=== PATIENT | female | born 1990 | race African-American/Black ===

== ENCOUNTER 2017-01-02 21:46 | Emergency (ER) | payer OTHER ==
[2017-01-02 22:02] VITALS: BP 136/73; PULSE 87; TEMP 99.7; BMI 37.2
--- NOTE | 2017-01-02 22:06 | PDOC ---
History of Present Illness - General Chief Complaint: Sore Throat Stated Complaint: SORE THROAT Time Seen by Provider: 01/02/17 22:05 - History of Present Illness Initial Comments: 26 year old female with no significant PMH presenting with throat pain and swelling for the past two days. She was at [facility] on 12/26 and 12/27 with main complaint of lower abdominal tenderness which was diagnosed as an ovarian cyst. She still has a sore throat with throat swelling that has not been addressed. She denies fevers, chills, nausea, vomiting, drooling, muffled voice, shortness of breath, or other sick symptoms. She had a test on Friday and Friday that were negative. She has not had intercourse since. She had no sick contacts and no one else around her is experiencing these symptoms. She denies rashes or any other skin lesions. 01/02/17 22:34 Past History - Past Medical History Allergies/Adverse Reactions: Allergies Allergy/AdvReac Type Severity Reaction Status Date / Time No Known Allergies Allergy Verified 01/02/17 22:02 Home Medications: Ambulatory Orders Amox-Tr/K Cl [Augmentin - 875Mg Tablet] 1 tab PO BID #19 tablet 01/02/17 Methylprednisolone [Medrol Dose Augustine] 4 mg PO ASDIR #21 tablet 01/02/17 Other medical history: denies - Psycho/Social/Smoking Cessation Hx Suicidal Ideation: No Smoking History: Never smoked Have you smoked in the past 12 months: No Information on smoking cessation initiated: No Hx Alcohol Use: No Drug/Substance Use Hx: No Substance Use Type: None Review of Systems - Review of Systems Constitutional: No: Chills, Fever, Loss of Appetite, Night Sweats, Weakness HEENTM: No: Blurred Vision, Recent change in vision Respiratory: No: Cough, Shortness of Breath, Stridor, Wheezing, Hemoptysis Cardiac (ROS): No: Chest Pain, Edema ABD/GI: No: Constipated, Diarrhea, Nausea, Vomiting : No: Dysuria, Discharge Musculoskeletal: No: Back Pain Integumentary: No: Bruising, Erythema, Lesions, Rash Neurological: Yes: Headache *Physical Exam - Vital Signs Last Vital Signs Temp Pulse Resp BP Pulse Ox 99.7 F H 87 18 136/73 98 01/02/17 21:58 01/02/17 21:58 01/02/17 21:58 01/02/17 21:58 01/02/17 21:58 - Physical Exam General Appearance: Yes: Nourished, Appropriately Dressed. No: Apparent Distress HEENT: positive: EOMI, FERNANDA, Normal Voice, Pharyngeal Erythema, Tonsillar Erythema, Other (Swollen tonsils. Marked submandibulaer ). negative: Normal ENT Inspection, Pharynx Normal, Muffled/Hoarse voice, Tonsillar Exudate, Excessive drooling, Thrush Neck: positive: Tender, Trachea midline, Normal Thyroid, Supple. negative: Rigid Respiratory/Chest: positive: Lungs Clear, Normal Breath Sounds. negative: Chest Tender, Respiratory Distress, Accessory Muscle Use Cardiovascular: positive: Regular Rhythm, Regular Rate, S1, S2. negative: JVD, Murmur Gastrointestinal/Abdominal: positive: Normal Bowel Sounds, Flat, Soft. negative : Tender, Organomegaly, Pulsatile Mass Integumentary: positive: Normal Color, Dry, Warm Neurologic: positive: Fully Oriented, Alert, Normal Mood/Affect, Normal Response , Motor Strength 5/5 Medical Decision Making - Medical Decision Making 26 year old healthy female with pharyngitis and marked submandibular lymphadenopathy, We will treat her empirically for ten days with with Augmentin 875 BID and send her out with ENT follow up with Dr. Hill. 01/02/17 23:02 *DC/Admit/Observation/Transfer Diagnosis at time of Disposition: Pharyngitis - Discharge Dispostion Disposition: HOME Condition at time of disposition: Improved Admit: No - Prescriptions Prescriptions: Amox-Tr/K Cl [Augmentin - 875Mg Tablet] 1 tab PO BID #19 tablet Methylprednisolone [Medrol Dose Augustine] 4 mg PO ASDIR #21 tablet - Referrals Referrals: Lily James MD [Primary Care Provider] - Jeyson Hill MD [Staff Physician] - - Patient Instructions Printed Discharge Instructions: Strep Throat Additional Instructions: You were seen for a swollen and painful throat. We believe you may have a viral or bacterial infection of your throat so we will give you antibiotics that you need to take twice a day for 10 days. Please make an appointment with the ENT doctor within a few days to have your throat evaluated., Please return to the ED if you have worsening selling, trouble breathing, drooling, fevers, chills, or other sick symptoms. - Attestations Physician Attestion: Attested by Dr. Pavon. 01/02/17 22:49 01/02/17 22:50
--- NOTE | 2017-01-02 22:28 | PDOC ---
Attending Attestation - Resident Resident Name: Tashi Pavon - ED Attending Attestation I have performed the following: I have examined & evaluated the patient, The case was reviewed & discussed with the resident, I agree w/resident's findings & plan, Exceptions are as noted - HPI HPI: 01/02/17 23:20 Pt with c/o sore throat for several days. Went to another hospital and states she was not given any ABx. pt states she is having worsening pain and symptoms. - Physicial Exam PE: 01/02/17 23:20 *Physical Exam General Appearance: Yes: Appropriately Dressed. No: Apparent Distress, Intoxicated HEENT: positive: EOMI, FERNANDA, Normal ENT Inspection, Normal Voice, TMs Normal, Pharynx Normal. negative: Pale Conjunctivae, Photophobia, Scleral Icterus (R), Scleral Icterus (L) Neck: positive: Trachea midline, Normal Thyroid, Supple. negative: Tender, Rigid, Carotid bruit, Stridor, Lymphadenopathy (R), Lymphadenopathy (L), Thyromegaly Respiratory/Chest: positive: Lungs Clear, Normal Breath Sounds. negative: Chest Tender, Respiratory Distress, Accessory Muscle Use, Labored Respiration, RES, Crackles, Rales, Rhonchi, Stridor, Wheezing, Dullness Cardiovascular: positive: Regular Rhythm, Regular Rate, S1, S2. negative: Edema , JVD, Murmur, Bradycardia, Tachycardia Vascular Pulses: Dorsalis-Pedis (R): 2+, Doralis-Pedis (L): 2+ Gastrointestinal/Abdominal: positive: Normal Bowel Sounds, Flat, Soft. negative : Tender, Organomegaly, Pulsatile Mass, Increased Bowel Sounds, Decreased BS, Distended, Guarding, Rebound, Hernia, Hepatomegaly, Spleenomegaly Lymphatic: negative: Adenopathy, Tenderness Musculoskeletal: positive: Normal Inspection. negative: CVA Tenderness, Decreased Range of Motion Extremity: positive: Normal Capillary Refill, Normal Inspection, Normal Range of Motion, Pelvis Stable. negative: Tender, Pedal Edema, Swelling, Erythema Integumentary: positive: Normal Color, Dry, Warm. negative: Cyanotic, Erythema , Jaundice, Rash Neurologic: positive: water project engineer II-XII NML intact, Fully Oriented, Alert, Normal Mood/ Affect, Motor Strength 5/5. negative: EOM Palsy, Facial Droop, Sensory Deficit
[2017-01-02] MEDS ORDERED: AMOX TR/POT CLAV 875MG/125MG TABLETS (FP) ONE (22:39)
[2017-01-02] MEDS ORDERED: AMOX TR/POT CLAV 875MG/125MG TABLETS (FP) PO ONE (22:54)
== END 2017-01-02 23:00 | disposition home or self-care (01) ==
LOC: JER 21:46
DX: J02.9 Acute pharyngitis, unspecified (principal)
CPT/HCPCS: 99282-25

== ENCOUNTER 2020-08-12 16:50 | Emergency (ER) | payer OTHER ==
[2020-08-12 16:58] VITALS: TEMP 98.3; BMI 39.4
[2020-08-12 17:21] VITALS: BP 117/64; PULSE 98
== END 2020-08-12 18:27 | disposition left against medical advice (07) ==
LOC: JER 16:50
DX: O26.851 Spotting complicating pregnancy, first trimester (principal); Z3A.08 8 weeks gestation of pregnancy
CPT/HCPCS: 99281-25

== ENCOUNTER 2021-01-31 22:46 | Emergency (ER) | payer OTHER ==
[2021-01-31 23:02] VITALS: BMI 39.2
[2021-02-01] MEDS ORDERED: SODIUM CHLORIDE 0.9% 500 ML INFUS.BAG IV ONE (00:01)
[2021-02-01] MEDS ORDERED: ONDANSETRON 4 MG/2 ML VIAL IVPUSH PRN (00:01)
[2021-02-01] MEDS ORDERED: FAMOTIDINE 20 MG/50 ML IVPB 20 MG/50 ML MG IVPB ONE ×2 (00:01→00:18)
[2021-02-01] MEDS ORDERED: ONDANSETRON 4 MG/2 ML VIAL ONE (00:18)
[2021-02-01 00:23] LABS: BASO % 0.6 % (0-2.0); HEMATOCRIT 33.3 % (32.4-45.2); HEMOGLOBIN 11.5 GM/dL (10.7-15.3); LYMPH % 25.4 % (8-40); MCH 28.9 pg (25.7-33.7); MCHC 34.4 g/dl (32.0-36.0); MEAN CELL VOLUME 83.9 fl (80-96); MEAN PLT VOLUME 8.8 fl (7.5-11.1); MONO % 9.3 % (3.8-10.2); NEUT % 62.7 % (42.8-82.8); PLATELET COUNT 177 10^3/uL (134-434); RBC 3.97 M/mm3 (3.60-5.2); RDW 13.7 % (11.6-15.6)
[2021-02-01 00:52] LABS: CALCIUM 9.3 mg/dL (8.5-10.1)
[2021-02-01 00:53] LABS: ALBUMIN 2.9 g/dl (3.4-5.0); BLOOD UREA NITROGEN 6.3 mg/dL (7-18)
[2021-02-01 00:56] LABS: CREATININE 0.6 mg/dL (0.55-1.3)
[2021-02-01 00:58] LABS: EPI CELLS >36 /uL (0-25.1); HYALINE CASTS 4 /uL (0-3.1); PH,URINE 5.5 (5.0-8.0); URINE APPEARANCE CLOUDY; URINE BACTERIA 4710 /uL (0-1359); URINE BILIRUBIN 1+ (NEGATIVE); URINE COLOR DK YELLOW; URINE GLUCOSE (UA) NEGATIVE (NEGATIVE); URINE KETONE TRACE (NEGATIVE); URINE LEUK ESTERASE TRACE (NEGATIVE); URINE NITRITE NEGATIVE (NEGATIVE); URINE PROTEIN 1+ (NEGATIVE); URINE RBC 12 /uL (0-23.9); URINE WBC 113 /uL (0-25.8)
[2021-02-01 00:58] LABS: BILIRUBIN,TOTAL 0.3 mg/dL (0.2-1)
[2021-02-01] MEDS ORDERED: CEPHALEXIN 250 MG/5 ML ORAL SUSPENSION PO ONE (01:39)
[2021-02-01] MEDS ORDERED: CEPHALEXIN MONOHYDRATE 500 MG CAPSULE (UD) ONE (01:51)
[2021-02-01 02:06] LABS: URINE CRYSTALS MANY /hpf
[2021-02-01] MEDS ORDERED: CEPHALEXIN MONOHYDRATE 500 MG CAPSULE (UD) PO ONE (02:08)
[2021-02-01 02:27] VITALS: BP 139/98; PULSE 70; TEMP 97.8
== END 2021-02-01 03:15 | disposition home or self-care (01) ==
LOC: JER 22:46
PROC: 3E033GC Introduction of Other Therapeutic Substance into Peripheral Vein, Percutaneous Approach (ICD-10-PCS; principal; 2021-01-31)
PROC: 3E033GC Introduction of Other Therapeutic Substance into Peripheral Vein, Percutaneous Approach (ICD-10-PCS; 2021-01-31)
DX: O26.893 Other specified pregnancy related conditions, third trimester (principal); R11.2 Nausea with vomiting, unspecified; N39.0 Urinary tract infection, site not specified
CPT/HCPCS: 36415; 80053; 81003; 85025; 87086; 99284-25; C9803; U0003; U0005

== ENCOUNTER 2021-04-11 00:25 | Inpatient (IN) | payer MEDICARE, OTHER ==
[2021-04-11] MEDS ORDERED: DEXTROSE 5%-LACTATED RINGERS 1,000 ML IV SCH (01:45)
[2021-04-11] MEDS ORDERED: AMPICILLIN - 2 GM in SODIUM CHLORIDE 100 ML IVPB ONE (01:45)
[2021-04-11] MEDS ORDERED: AMPICILLIN SODIUM 2 GM VIAL ONE (01:59)
[2021-04-11 02:10] LABS: BASO % 0.4 % (0-2.0); EOS % 0.6 % (0-4.5); HEMATOCRIT 35.5 % (32.4-45.2); HEMOGLOBIN 12.2 GM/dL (10.7-15.3); LYMPH % 30.8 % (8-40); MCHC 34.3 g/dl (32.0-36.0); MEAN CELL VOLUME 84.6 fl (80-96); MEAN PLT VOLUME 9.2 fl (7.5-11.1); MONO % 7.4 % (3.8-10.2); NEUT % 60.8 % (42.8-82.8); PLATELET COUNT 164 10^3/uL (134-434); RBC 4.19 M/mm3 (3.60-5.2); RDW 13.8 % (11.6-15.6); WHITE BLOOD COUNT 5.4 K/mm3 (4.0-10.0)
[2021-04-11] MEDS ORDERED: OXYTOCIN 30 UNITS in 0.9% NS 30 UNIT/500 ML INFUS.BAG IVPB SCH (02:15)
[2021-04-11 02:20] LABS: INR 0.9 (0.83-1.09); PROTHROMBIN TIME (PATIENT) 10.5 SEC (9.7-13.0)
[2021-04-11 02:22] LABS: ACTIVATED PTT 24.6 SECONDS (25.2-36.5)
[2021-04-11] MEDS ORDERED: OXYTOCIN 30 UNITS in 0.9% NS 30 UNIT/500 ML INFUS.BAG IVPB ONE (02:24)
[2021-04-11 02:26] LABS: CALCIUM 8.9 mg/dL (8.5-10.1)
[2021-04-11 02:27] LABS: BLOOD UREA NITROGEN 11.1 mg/dL (7-18)
[2021-04-11 02:30] LABS: CREATININE 0.8 mg/dL (0.55-1.3)
[2021-04-11 02:47] LABS: METHADONE, UR NEGATIVE (NEGATIVE); PHENCYCLIDINE,URINE NEGATIVE (NEGATIVE); URINE BARBITURATES NEGATIVE (NEGATIVE)
[2021-04-11 02:48] VITALS: BMI 39.2
[2021-04-11 02:48] LABS: URINE BENZODIAZEPINES NEGATIVE (NEGATIVE)
[2021-04-11 03:23] LABS: HIV INTERPRETATION NEGATIVE (NEGATIVE)
[2021-04-11 03:42] LABS: COCAINE, UR NEGATIVE (NEGATIVE); OPIATES, URI NEGATIVE (NEGATIVE); URINE AMPHETAMINES NEGATIVE (NEGATIVE)
[2021-04-11] MEDS ORDERED: PCA PUMP NR ONE ×2 (04:29→09:21)
[2021-04-11] MEDS ORDERED: FENTANYL/BUPIVACAINE/NS/PF - PCEA - 50 ML DISP.SYRIN EP ONE ×2 (04:38→09:20)
[2021-04-11] MEDS ORDERED: NALOXONE HCL 0.4 MG/ML VIAL IVPUSH PRN (05:33)
[2021-04-11] MEDS ORDERED: ELECTROLYTE-148 SOLN 1,000 ML IV SCH (05:40)
[2021-04-11] MEDS ORDERED: FENTANYL/BUPIVACAINE/NS/PF - PCEA - 50 ML DISP.SYRIN EP SCH ×2 (05:45→06:46)
[2021-04-11] MEDS ORDERED: AMPICILLIN SODIUM 1 GM VIAL ONE ×2 (05:58→09:35)
[2021-04-11] MEDS: AMPICILLIN - 1 GM in SODIUM CHLORIDE 100 ML IVPB SCH ×3 (06:00→16:55)
[2021-04-11] MEDS ORDERED: OXYTOCIN 20 UNITS in 0.9% NS 20 UNIT/1,000 ML INFUS.BAG IV ONE ×2 (09:32→14:10)
[2021-04-11] MEDS ORDERED: IBUPROFEN 600 MG TABLET (FP) PO PRN (12:36)
[2021-04-11] MEDS ORDERED: WITCH HAZEL 50% (TUCKS) 40 PAD/JAR PAD TP PRN (12:36)
[2021-04-11] MEDS ORDERED: BENZOCAINE 28 GM HEMORRHOIDAL OINTMENT TP PRN (12:36)
[2021-04-11] MEDS ORDERED: METHYLERGONOVINE MALEATE 0.2 MG/1 ML AMP IM PRN (12:36)
[2021-04-11] MEDS ORDERED: BENZOCAINE 20% 57 GM BOTTLE TP PRN (12:36)
[2021-04-11] MEDS ORDERED: ACETAMINOPHEN 325 MG TABLET (FP) PO PRN (12:36)
[2021-04-11] MEDS ORDERED: BISACODYL 10 MG SUPP.RECT RC PRN (12:36)
[2021-04-11] MEDS ORDERED: OXYTOCIN 20 UNITS in 0.9% NS 20 UNITS/1,000 ML INFUS.BAG IV SCH (12:45)
[2021-04-11 13:39] LABS: CORD BASE EXCESS -7.1 mmol/L (0-2); CORD HCO3 23.4 mmHg (20-29); CORD PCO2 69.9 mmHg (30-78); CORD pH 7.142 (7.14-7.44)
[2021-04-11 13:41] LABS: CORD BASE EXCESS -5.1 mmol/L (0-2); CORD HCO3 23.5 mmHg (20-29); CORD PCO2 58.7 mmHg (30-78); CORD pH 7.221 (7.14-7.44)
[2021-04-11] MEDS: FERROUS SO4 325 MG TABLET (FP) PO SCH (16:59)
[2021-04-11] MEDS: oxyCODONE HCL 5 MG TABLET PO PRN (22:40)
[2021-04-12 08:05] LABS: BASO % 0.3 % (0-2.0); EOS % 0.4 % (0-4.5); HEMATOCRIT 32.2 % (32.4-45.2); LYMPH % 22.8 % (8-40); MCH 29.3 pg (25.7-33.7); MCHC 34.3 g/dl (32.0-36.0); MEAN CELL VOLUME 85.5 fl (80-96); MEAN PLT VOLUME 9.9 fl (7.5-11.1); MONO % 6.6 % (3.8-10.2); NEUT % 69.9 % (42.8-82.8); PLATELET COUNT 152 10^3/uL (134-434); RBC 3.76 M/mm3 (3.60-5.2); RDW 13.9 % (11.6-15.6); WHITE BLOOD COUNT 9.5 K/mm3 (4.0-10.0)
[2021-04-12] MEDS: oxyCODONE HCL 5 MG TABLET PO PRN (08:43)
[2021-04-12] MEDS: FERROUS SO4 325 MG TABLET (FP) PO SCH ×2 (08:44→18:22)
[2021-04-12] MEDS: PRENATAL VITAMINS W/ FOLIC ACID TABLET (FP) PO SCH (09:24)
[2021-04-12] MEDS ORDERED: SENNOSIDES/DOCUSATE COMBO (SENNA PLUS) TABLET (UD) PO PRN (22:00)
[2021-04-13] MEDS: FERROUS SO4 325 MG TABLET (FP) PO SCH (09:40)
[2021-04-13] MEDS: oxyCODONE HCL 5 MG TABLET PO PRN (09:41)
[2021-04-13] MEDS: PRENATAL VITAMINS W/ FOLIC ACID TABLET (FP) PO SCH (09:41)
[2021-04-13 10:47] VITALS: BP 123/77; PULSE 76; TEMP 97.2
== END 2021-04-13 12:55 | disposition home or self-care (01) | DRG 560 ==
LOC: JDEL 00:25 → JLDR 01:20 → J3W 14:30
PROVIDERS: ADMIT Obstetrics & Gynecology; ATTEND Obstetrics & Gynecology
PROC: 10E0XZZ Delivery of Products of Conception, External Approach (ICD-10-PCS; principal; 2021-04-11)
DX: O48.0 Post-term pregnancy (principal); O99.214 Obesity complicating childbirth; Z37.0 Single live birth; Z3A.40 40 weeks gestation of pregnancy
CPT/HCPCS: 36415; 36600; 59409; 80048; 80307; 82803; 85025; 85610; 85730; 86780; 86850; 86900; 86901; 87389; C9803; U0003; U0005